=== PATIENT | male | born 1980 | race African-American/Black ===

== ENCOUNTER → 2017-10-08 | Outpatient (CLI) | payer SELFPAY ==
[2017-10-08 14:28] LABS: ANION GAP 5 mmol/L (5-15); BLOOD UREA NITROGEN 34 mg/dL (7-18); CALCIUM 8.1 MG/DL (8.5-10.1); CARBON DIOXIDE 32 MMOL/L (21-32); CHLORIDE 108 MMOL/L (98-107); CREATININE 4.1 MG/DL (0.55-1.30); POTASSIUM 3.2 MMOL/L (3.5-5.1); SODIUM 144 MMOL/L (136-145)
== END | disposition home or self-care (01) ==
LOC: LAB 13:00
DX: E11.22 Type 2 diabetes mellitus with diabetic chronic kidney disease (principal); N18.4 Chronic kidney disease, stage 4 (severe)
CPT/HCPCS: 36415; 80048